=== PATIENT | male | born 1995 | race Caucasian/White ===

== ENCOUNTER 2022-01-18 09:29 | Emergency (ER) | payer OTHER ==
[2022-01-18] MEDS ORDERED: Ondansetron PF 4 MG/2 ML Vial ONE (11:15)
[2022-01-18] MEDS ORDERED: Sterile Water 10 ML ONE (11:16)
== END 2022-01-18 12:36 | disposition home or self-care (01) ==
LOC: ERS 09:29
DX: T18.128A Food in esophagus causing other injury, initial encounter (principal)
CPT/HCPCS: 70360; 71046; 94760; 96374; 96375; J1610; J2405